=== PATIENT | male | born 1985 | race African-American/Black ===

== ENCOUNTER 2018-01-30 18:36 | Emergency (ER) | payer SELFPAY ==
[~2018-01-30] VITALS: Ht 185.4 cm; Wt 72.6 kg
[2018-01-30 18:49] VITALS: BP 112/74
--- NOTE | 2018-01-30 19:17 | Emergency Room Report ---
History of Present Illness General Chief Complaint: Eye Problems Source: Patient Present Illness HPI 32-year-old male patient presents ER complaining of styes on his bilateral eyelids intermittently for the past month. Reports he is using warm compresses with mild relief of symptoms, states he has used teabags without relief of symptoms.. Denies vision loss. Denies crusting. Denies pain with eye movement. Denies fever, chest pain, shortness of breath, other acute symptoms. Allergies: Coded Allergies: PENICILLINS (Verified Allergy, Unknown, 01/30/18) Patient History Past Medical History: see triage record Reviewed Nursing Documentation: PMH: Agreed; PSxH: Agreed Nursing Documentation-PMH Past Medical History: No Stated History Review of Systems All Other Systems: negative except mentioned in HPI Physical Exam Vital Signs Date Time Temp Pulse Resp B/P (MAP) Pulse Ox O2 Delivery O2 Flow Rate FiO2 01/30/18 18:44 98.0 61 14 112/74 99 Room Air 98.1 Sp02 EP Interpretation: reviewed, normal General Appearance: well appearing, no apparent distress, alert, GCS 15, non- toxic Head: normocephalic, atraumatic Eyes: bilateral eye normal inspection, bilateral eye PERRL, bilateral eye other - 1 erythematous stye noted on right and left upper eyelids, no draining, erythematous, does not come to a point, TTP ENT: hearing grossly normal, normal pharynx, no angioedema, normal voice, uvula midline, moist mucus membranes Neck: full range of motion Respiratory: lungs clear, normal breath sounds, no rhonchi, no respiratory distress, no accessory muscle use, no wheezing, speaking full sentences Cardiovascular #1: regular rate, rhythm, no edema Musculoskeletal: back normal, digits/nails normal, gait/station normal, normal range of motion, non-tender Neurologic: alert, oriented x3, responsive, motor strength/tone normal, sensory intact Psychiatric: mood/affect normal Lymphatic: no adenopathy Medical Decision Making PA Attestation Dr. Hill is my supervising Physician whom patient management has been discussed with. Diagnostic Impression: Primary Impression: Stye ER Course Pt. presents to the ED c/o swollen bumps on eyes. Ddx considered but are not limited to allergic conjunctivitis, bacterial conjunctivitis, orbital cellulitis, URI, sinusitis, stye, chalazion. Vital signs: are WNL, pt. is afebrile ER COURSE: physical exam, patient has 2 erythematous styes on bilateral upper eyelids, advised patient to continue using warm compresses to treat symptoms. 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 Advised patient to follow-up with ophthalmology, will provide name for oncology rn. consulted with Dr. Hill, will provide topical medication for treatment. On repeat examination patient had eloped. Attempted to contact patient, nursing staff left voicemail for patient. Patient did not return call or return to the ER. patient stable, nontoxic appearing, no acute distress. No pain with eye movement no surrounding tissue erythema or edema, low suspicion for preseptal cellulitis or cellulitis. did not require imaging or antibiotics at this time. No corneal injection, no reprots of crusting, no discharge noted, low suspicion fo conjunctivitis. - Please note that this Emergency Department Report was dictated using [employer] equipment design engineer technology software, occasionally this can lead to erroneous entry secondary to interpretation by the dictation equipment. Last Vital Signs Date Time Temp Pulse Resp B/P (MAP) Pulse Ox O2 Delivery O2 Flow Rate FiO2 01/30/18 18:49 98.1 87 14 112/74 99 Room Air 98.1 Disposition: ELOPED Condition: Stable Referrals: GUICHO MCKINLEY Patient Instructions: Vj De La Fuente Jan 30, 2018 19:17
[2018-01-30 19:25] VITALS: BP 112/74
== END 2018-01-30 19:25 | disposition left against medical advice (07) ==
LOC: EMR 19:22
DX: H00.024 Hordeolum internum left upper eyelid (principal); H00.021 Hordeolum internum right upper eyelid; Z88.0 Allergy status to penicillin
CPT/HCPCS: 99283